=== PATIENT | male | born 1975 | race Caucasian/White ===

== ENCOUNTER 2022-04-19 13:25 | Emergency (ER) | payer MEDICAID, SELFPAY ==
[2022-04-19 13:27] VITALS: BP 173/108; PULSE 95; RESP 16; TEMP 36.4; O2SAT 95
--- NOTE | 2022-04-19 14:27 | CTR_ITS ---
PROCEDURE INFORMATION: Exam: CT Head Without Contrast Exam date and time: 04/19/2022 3:13 PM Age: 47 years old Clinical indication: Other: Numbness on RT side TECHNIQUE: Imaging protocol: Computed tomography of the head without contrast. Radiation optimization: All CT scans at this facility use at least one of these dose optimization techniques: automated exposure control; mA and/or kV adjustment per patient size (includes targeted exams where dose is matched to clinical indication); or iterative reconstruction. COMPARISON: No relevant prior studies available. RADIATION DOSE METRICS: Total DLP (mGy-cm): 1017.04 FINDINGS: Brain: Normal. No hemorrhage. Unremarkable white matter. No mass effect. Cerebral ventricles: No ventriculomegaly. Paranasal sinuses: Visualized sinuses are unremarkable. No fluid levels. Mastoid air cells: Visualized mastoid air cells are well aerated. Bones/joints: Unremarkable. No acute fracture. Soft tissues: Unremarkable. CT/CT head wo con* [id number] IMPRESSION: No acute intracranial abnormality.
--- NOTE | 2022-04-19 15:10 | PC.NURSE ---
ROUNDED ON PT IN WAITING ROOM PT IS IN NAD.
[2022-04-19 16:02] LABS: Basophils # 0.1 10^3/uL (0.0-0.1); Basophils % 0.6 %; Eosinophils # 0.2 10^3/uL (0.0-0.8); Eosinophils % 2.8 %; Hematocrit 50.7 % (42.0-52.0); Hemoglobin 16.8 g/dL (11.7-16.6); Lymphocytes % 24.5 %; Mean Corpuscular HGB Conc 33.1 g/dL (30.0-36.0); Mean Corpuscular Hemoglobin 31.8 pg (28.0-34.0); Mean Platelet Volume 8.7 fL (7.4-10.4); Monocytes # 0.6 10^3/uL (0.2-0.9); Monocytes % 7.6 %; Neutrophils # 5.36 10^3/uL (1.8-7.7); Neutrophils % 64.4 %; Nucleated Red Blood Cells % 0 %; Platelet Count 363 10^3/cmm (130-400); Red Blood Count 5.28 10^6/uL (4.1-5.3); Red Cell Distribution Width 12.8 % (12.1-15.1); White Blood Count 8.3 10^3/uL (4.0-10.0)
[2022-04-19 16:08] LABS: INR 1.01 (0.8-1.2)
--- NOTE | 2022-04-19 16:18 | W.ED.NEUROSD ---
HPI - Neuro Symptoms/Deficit General: Chief Complaint: Neuro Symptoms/Deficit Stated Complaint: possible stroke Time Seen by Provider: 04/19/22 16:03 History of Present Illness: 47-year-old male presents with what he feels like some tingling of his lips, little bit of tingling in his left arm. A little bit of pain in his shoulder blades or back. Patient reports he had a similar episode about 2 weeks ago and which he thought he was having a stroke patient reports only difference at that time was that he was also having some heartburn associated with it. Patient has no actual focal weakness or deficits that he complains of. Patient denies any chest pain at this time. He denies any nausea, vomiting, fever, chills or recent illness. Associated symptoms: Deny chest pain, diaphoresis, headache(s), nausea, syncope, vertigo or vomiting Review of Systems Const: Denies: fever(s), chills, fatigue or diaphoresis Eyes: Denies: change in vision or blurry vision ENMT: Denies: throat pain or ear or mastoid pain Card: Denies: chest pain, palpitations, lightheadedness or syncope Resp: Denies: dyspnea or productive cough GI: Denies: abdominal pain, nausea or vomiting : Denies: flank pain, difficulty urinating or dysuria Musc: Reports: other (Please see HPI) Skin/Breast: Denies: rash or pruritus Neuro: Reports: numbness in extremities and sensory changes; Denies: headache(s), weakness in extremities, dizziness, vertigo, confusion, Slurred speech present, difficulty communicating thoughts or involuntary movements NIH stroke score NIHSS: Level Of Consciousness - 1a: 0 Level Of Consciousness Questions - 1b: Both Correct Level Of Consciousness Commands - 1c: Both Correct Best Gaze - 2: Normal Visual Siddiqui - 3: No Visual Loss Facial Palsy - 4: Normal Motor Arm Right - 5: No Drift Motor Arm Left - 5: No Drift Motor Leg Right - 6: No Drift Motor Leg Left - 6: No Drift Limb Ataxia - 7: Absent Best Language - 9: No Aphasia Dysarthia - 10: Normal Extinction And Inattention - 11: 0 Physical Exam Const: COMMON NORMALS: no acute distress, average body habitus, patient oriented x3 and alert HENMT: COMMON NORMALS: normocephalic, hearing grossly normal bilaterally and moist oral mucous membranes HEAD & SCALP: normocephalic Resp: COMMON NORMALS: normal respiratory effort, No use of accessory muscles and clear to auscultation bilaterally AUSCULTATION: clear to auscultation bilaterally Cardio: COMMON NORMALS: regular rate and regular rhythm RATE: regular rate RHYTHM: regular rhythm GI: COMMON NORMALS: Soft to palpation and non-tender PALPATION: Yes Soft to palpation Extremity: COMMON NORMALS: normal to inspection, full ROM and capillary refill normal Neuro: COMMON NORMALS: patient oriented x3, CN's II-XII intact bilaterally, moves all extremities, no focal motor deficits and gait normal SENSORIUM/ORIENTATION: Yes alert Psych: COMMON NORMALS: mental status grossly normal, Normal thought process present, cooperative and normal affect THOUGHT PROCESS: Normal thought process present Skin: COMMON NORMALS: no rashes or lesions noted and turgor normal GENERAL SKIN EXAM: no rashes or lesions noted and turgor normal Course Vital Signs: Vital signs: Vital Signs Temperature 97.6 F 04/19/22 13:27 Pulse Rate 95 04/19/22 13:27 Respiratory Rate 16 04/19/22 13:27 Blood Pressure 173/108 04/19/22 13:27 Pulse Oximetry 95 04/19/22 13:27 MDM - Neuro Symptoms/Deficit Medical Decision Making Patient with no acute abnormalities on labs,. EKG, troponin are both negative. I discussed with patient that I would recommend he follow-up with both neurology and cardiology. He would likely benefit fit from a cervical MRI since his bilateral arms to get feeling heavy or numb and tingly with certain ways he holds them. Patient with a negative CT head. Patient stable and discharged home Lab Data 04/19/22 15:40 04/19/22 15:[address] 04/19/22 14:27 IMPRESSION: No acute intracranial abnormality. Chest X-Ray 04/19/22 16:30 IMPRESSION: No acute findings. Laboratory Results WBC 8.3 10^3/uL (4.0-10.0) 04/19/22 15:40 RBC 5.28 10^6/uL (4.1-5.3) 04/19/22 15:40 Hgb 16.8 g/dL (11.7-16.6) H 04/19/22 15:40 Hct 50.7 % (42.0-52.0) 04/19/22 15:40 MCV 96.0 fl (80-94) H 04/19/22 15:40 MCH 31.8 pg (28.0-34.0) 04/19/22 15:40 MCHC 33.1 g/dL (30.0-36.0) 04/19/22 15:40 RDW 12.8 % (12.1-15.1) 04/19/22 15:40 Plt Count 363 10^3/cmm (130-400) 04/19/22 15:40 MPV 8.7 fL (7.4-10.4) 04/19/22 15:40 Neut % (Auto) 64.4 % 04/19/22 15:40 Lymph % (Auto) 24.5 % 04/19/22 15:40 Jerauld % (Auto) 7.6 % 04/19/22 15:40 Eos % (Auto) 2.8 % 04/19/22 15:40 Baso % (Auto) 0.6 % 04/19/22 15:40 Neut # (Auto) 5.36 10^3/uL (1.8-7.7) 04/19/22 15:40 Lymph # (Auto) 2.0 10^3/uL (0.8-4.8) 04/19/22 15:40 Jerauld # (Auto) 0.6 10^3/uL (0.2-0.9) 04/19/22 15:40 Eos # (Auto) 0.2 10^3/uL (0.0-0.8) 04/19/22 15:40 Baso # (Auto) 0.1 10^3/uL (0.0-0.1) 04/19/22 15:40 Nucleated RBC % (auto) 0 % 04/19/22 15:40 Nucleated RBCs # 0.0 /100WBC 04/19/22 15:40 PT 13.60 SECONDS (12.1-14.9) 04/19/22 15:40 INR 1.01 (0.8-1.2) 04/19/22 15:40 APTT 26.0 SECONDS (23.9-36.7) 04/19/22 15:40 D-Dimer <= 0.27 ug/mIFEU (0-0.59) 04/19/22 15:40 Sodium 138 mmol/L (136-145) 04/19/22 15:40 Potassium 4.1 mmol/L (3.5-5.1) 04/19/22 15:40 Chloride 102 mmol/L (98-107) 04/19/22 15:40 Carbon Dioxide 28 mmol/L (22-29) 04/19/22 15:40 Anion Gap 12.1 (5-19) 04/19/22 15:40 BUN 13 mg/dL (6-20) 04/19/22 15:40 Creatinine 0.9 mg/dL (0.7-1.2) 04/19/22 15:40 GFR Calculation 89.7 mL/min (90-130) L 04/19/22 15:40 Glucose 97 mg/dL (65-115) 04/19/22 15:40 Calculated Osmolality 286 mOsm/kg (285-295) 04/19/22 15:40 Calcium 10.2 mg/dL (8.5-10.5) 04/19/22 15:40 Total Bilirubin 0.4 mg/dL (0.15-1.2) 04/19/22 15:40 AST 17 U/L (0-40) 04/19/22 15:40 ALT 29 U/L (0-41) 04/19/22 15:40 Alkaline Phosphatase 108 U/L (40-130) 04/19/22 15:40 Troponin T Gen 5 ng/L 7 ng/L (0-15) 04/19/22 15:40 Total Protein 8.1 g/dL (6.6-8.7) 04/19/22 15:40 Albumin 4.6 g/dL (3.5-5.2) 04/19/22 15:40 Globulin 3.5 g/dL (1.3-4.6) 04/19/22 15:40 TSH 0.61 uIU/mL (0.27-4.20) 04/19/22 15:40 Discharge Plan Discharge Patient Disposition: Home Clinical Impression: Paresthesia and pain of both upper extremities, Peripheral neuropathy Condition: Stable Discharge Orders: Discharge ED (Routine); Ordered 04/19/22 Ordered By: Aquiles Diaz Referrals: Sepideh Montaño [Primary Care Provider] - Discharge Diet: Usual diet Discharge Activity: Increase activity as tolerated Patient Instructions: Paresthesia (ED), Opioid Safety, Pain Management Activity Restrictions/Additional Instructions: Please follow-up with your primary care provider for further evaluation and testing. Please consider cardiology consultation and possible neurology. Return to the ER with any concerns. Coding Level of Care Code ED Property Claims Adjuster for Gala Fwd Exam Comprehensive
--- NOTE | 2022-04-19 16:19 | ECG_ITS ---
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 Measurements Intervals [place] Rate: 74 P: 61 DC: 181 QRS: 24 QRSD: 73 T: 39 QT: 361 QTc: 401 Interpretive Statements SINUS RHYTHM POSSIBLE LEFT ATRIAL ENLARGEMENT [-0.1mV P-WAVE IN V1/V2] NONSPECIFIC T-WAVE ABNORMALITY No previous ECG available for comparison Electronically Signed On 04-19-2022 20:20:00 SKIP LOADER by Bryce Quintanilla M.D. [id number]
[2022-04-19 16:22] LABS: Alanine Aminotransferase 29 U/L (0-41); Albumin Level 4.6 g/dL (3.5-5.2); Alkaline Phosphatase 108 U/L (40-130); Anion Gap 12.1 (5-19); Aspartate Amino Transferase 17 U/L (0-40); Blood Urea Nitrogen 13 mg/dL (6-20); Calcium 10.2 mg/dL (8.5-10.5); Carbon Dioxide 28 mmol/L (22-29); Chloride 102 mmol/L (98-107); Globulin 3.5 g/dL (1.3-4.6); Glomerular Filtration Rate 89.7 mL/min (90-130); Glucose 97 mg/dL (65-115); Osmolality Calculated 286 mOsm/kg (285-295); Potassium 4.1 mmol/L (3.5-5.1); Sodium 138 mmol/L (136-145); Total Bilirubin 0.4 mg/dL (0.15-1.2); Total Protein 8.1 g/dL (6.6-8.7)
--- NOTE | 2022-04-19 16:30 | XRR_ITS ---
PROCEDURE INFORMATION: Exam: XR Chest Exam date and time: 04/19/2022 4:34 PM Age: 47 years old Clinical indication: Pain; Chest pressure; Additional info: Paresthesia, questionable CVA TECHNIQUE: Imaging protocol: Radiologic exam of the chest. Views: 1 view. COMPARISON: No relevant prior studies available. FINDINGS: Lungs: Calcified granulomas noted in both lung bases. No consolidation. Pleural spaces: Unremarkable. No pleural effusion. No pneumothorax. Heart/Mediastinum: Unremarkable. No cardiomegaly. Bones/joints: Unremarkable. XR/XR chest 1V portable [id number] IMPRESSION: No acute findings.
[2022-04-19 16:46] LABS: Troponin T (5th) Once 7 ng/L (0-15)
[2022-04-19 17:16] LABS: D Dimer <= 0.27 ug/mIFEU (0-0.59)
[2022-04-19 17:22] LABS: Thyroid Stimulating Hormone 0.61 uIU/mL (0.27-4.20)
== END 2022-04-19 17:58 | disposition home or self-care (01) ==
PROVIDERS: Emergency Provider Student in an Organized Health Care Education/Training Program; PCP Nurse Practitioner
DX: R20.2 Paresthesia of skin (principal); M79.602 Pain in left arm; M79.601 Pain in right arm; G62.9 Polyneuropathy, unspecified
CPT/HCPCS: 36415; 70450; 71045; 80053; 84443; 84484; 85025; 85378; 85610; 85730; 93005; 99285

== ENCOUNTER 2022-06-01 13:29 | Outpatient (CLI) | payer MEDICAID, SELFPAY ==
--- NOTE | 2022-06-01 13:45 | USCV_ITS ---
Austin Henriquez Age: 47 Gender: M : 1975 Exam Date: 06/01/2022 14:08 Ordering Phys: Bryce Quintanilla MD ([email or web address]) Technologist: Candis Sun Exam Location: [facility] [place] Indication: CP and SOB BP: 180 / 105 HR: 85 Rhythm: Sinus Technical Quality: Adequate MEASUREMENTS (Male / Female) Normal Values 2D ECHO LV Diastolic Diameter PLAX 3.0 cm 4.2 - 5.9 / 3.9 - 5.3 cm LV Systolic Diameter PLAX 1.1 cm LV Chamber Size 3.3 cm IVS Diastolic Thickness 1.0 cm 0.6 - 1.0 / 0.6 - 0.9 cm IVS Systolic Thickness 1.3 cm LVPW Diastolic Thickness 1.1 cm 0.6 - 1.0 / 0.6 - 0.9 cm LVPW Systolic Thickness 1.5 cm RV Chamber Size 3.9 cm LVOT Diameter 2.0 cm LV Ejection Fraction 2D Teich 93.4 % LV Ejection Fraction MOD 2C 45.1 % LV Ejection Fraction 2C AL 45.7 % LA Diameter 3.0 cm LA Width 2.4 cm LA Height 3.9 cm RA Width 3.9 cm RA Height 3.5 cm Aorta at Sinotubular Diameter 3.2 cm IVC Diameter 1.5 cm M-MODE Aortic Annulus Diameter 3.3 cm LA Ao Ratio MM 1.1 MV E Point Septal Separation 0.3 cm DOPPLER AV Peak Velocity 150.0 cm/s LVOT Peak Velocity 131.0 cm/s AV Area Cont Eq vti 2.6 cm squared AV Area Cont Eq pk 2.8 cm squared MV Area PHT 3.9 cm squared Mitral E to A Ratio 0.8 MV E' Velocity 33.0 cm/s Mitral E to MV E' Ratio 7.6 Mitral E to LV E' Lateral Ratio 10.8 Mitral E to LV E' Septal Ratio 6.0 TR Peak Velocity 74.6 cm/s TR Peak Gradient 2.2 mmHg TR Mean Velocity 93.6 cm/s TR Mean Gradient 3.7 mmHg TR Velocity Time Integral 26.2 cm TV Peak E Velocity 53.0 cm/s Right Atrial Pressure 3.0 mmHg Pulmonary Artery Systolic Pressu 5.2 mmHg PV Peak Velocity 71.0 cm/s RV Acceleration Time 0.1 s RV Ejection Time 0.3 s RV AcT/ET 0.4 FINDINGS Left Ventricle Normal left ventricular size and systolic function, EF 65 %. No regional wall motion abnormalities. Grade I/IV diastolic dysfunction (abnormal relaxation filling pattern), normal to mildly elevated filling pressures. Right Ventricle The right ventricle is normal in size and function. Right Atrium The right atrium is normal in size. Left Atrium The left atrium is normal in size. Mitral Valve No gross abnormalities noted Aortic Valve No gross abnormalities noted Tricuspid Valve Trace tricuspid valve regurgitation. Pulmonic Valve No gross abnormalities noted Pericardium Normal pericardium without effusion. Aorta Normal ascending aorta dimension. IVC The inferior vena cava appears normal. CONCLUSIONS Normal left ventricular size and systolic function, EF 65 %. No regional wall motion abnormalities. Grade I/IV diastolic dysfunction (abnormal relaxation filling pattern), normal to mildly elevated filling pressures. Trace tricuspid valve regurgitation. Normal cardiac chamber sizes. There is no pericardial effusion. There are no intracardiac masses. No similar previous studies are available for comparison Dr Bryce Quintanilla MD [facility] (Electronically Signed) Final Date: 02 June 2022 08:06 S
== END 2022-06-01 13:30 | disposition home or self-care (01) ==
LOC: RAD 13:34
PROVIDERS: PCP Nurse Practitioner Family; Visit Provider Internal Medicine Cardiovascular Disease
DX: R06.09 Other forms of dyspnea (principal)
CPT/HCPCS: 93306

== ENCOUNTER 2022-08-11 11:49 | Outpatient (CLI) | payer MEDICAID, SELFPAY ==
--- NOTE | 2022-08-11 | ECG_ITS ---
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 Interpretive Statements NAME OF STUDY: TREADMILL STRESS TEST INDICATION: Chest Pain, PROCEDURE: At the baseline, the patient's blood pressure was 128/97 with a heart rate of 73. The baseline electrocardiogram showed normal sinus rhythm with normal ST-Ts.. The patient exercised for 9 minutes and 31 seconds on a standard Darron protocol. Patient attained a maximum heart rate of 160 beats per minute(93% of the maximum predicted heart rate) with a blood pressure at the peak exercise of 170/93 mm Hg. The EKG at the peak exercise revealed no significant changes. Patient did not have any chest pain or any significant cardiac arrhythmias with the exercise During the recovery phase, there were no new changes. Blood pressure at the end of the recovery phase was 141/99 mm Hg with a heart rate of 95 per minute. CONCLUSION: 1. Normal EKG response to treadmill exercise 2. No exercise-induced chest pain or cardiac arrhythmia 3. Fair exercise tolerance, attained a maximum of 13.5 METs Electronically Signed On 08-15-2022 19:47:02 CDT by Bryce Quintanilla M.D. [id number]
[2022-08-11 11:57] VITALS: BMI 29.9
[2022-08-11 12:59] VITALS: BP 141/99; PULSE 95
== END 2022-08-11 11:50 | disposition home or self-care (01) ==
LOC: CDL 11:51
PROVIDERS: PCP Nurse Practitioner Family; Visit Provider Internal Medicine Cardiovascular Disease
DX: R07.9 Chest pain, unspecified (principal)
CPT/HCPCS: 36415; 85378